=== PATIENT | female | born 1990 ===

== ENCOUNTER 2016-10-10 20:44 | Emergency (ER) | payer OTHER ==
[2016-10-10 20:45] VITALS: BMI 35.2
[2016-10-10 22:59] LABS: RBC URINE 5 /hpf (0-3); URINE BACTERIA RARE (<OCC); URINE BILIRUBIN NEGATIVE (NEGATIVE); URINE BLOOD 1+ (NEGATIVE); URINE COLOR Yellow (YELLOW); URINE GLUCOSE (UA) NORMAL (Normal); URINE KETONE NEGATIVE (NEGATIVE); URINE LEUKOCYTE ESTERASE 3+ Leu/uL (Negative); URINE PROTEIN NEGATIVE (NEGATIVE); URINE UROBILINOGEN NORMAL mg/dL (0.2-1.0); WBC URINE 75 /hpf (0-5)
--- NOTE | 2016-10-10 23:03 | C.PDOC ---
History Of Present Illness Patient presents to the ER with a complaint of abdominal pain and mild dysuria. Patient is tolerating PO well. Denies nausea or vomiting. Time Seen by Provider: 10/10/16 23:02 Chief Complaint (Nursing): Abdominal Pain History Per: Patient History/Exam Limitations: no limitations Onset/Duration Of Symptoms: Days (3) Current Symptoms Are (Timing): Still Present Severity: Mild Pain Scale Rating Of: 3 Location Of Pain/Discomfort: Diffuse Radiation Of Pain To:: None Quality Of Discomfort: Unable To Describe Associated Symptoms: denies: Fever, Chills, Nausea, Vomiting Exacerbating Factors: None Alleviating Factors: None Recent travel outside of the [place]: No Abnormal Vaginal Bleeding: No Past Medical History Reviewed: Historical Data, Nursing Documentation, Vital Signs Vital Signs: Last Vital Signs Temp 98.3 F 10/10/16 20:52 Pulse 62 10/10/16 23:54 Resp 18 10/10/16 23:54 BP 92/60 L 10/10/16 23:54 Pulse Ox 97 10/10/16 23:54 - Medical History PMH: Hyperthyroidism, Hypothyroidism Surgical History: Cholecystectomy - [facility] Procedures INDUCT LABOR-RUPT MEMB (01/06/15) MANUAL ASSIST DELIV NEC (01/06/15) REPAIR OB LACERATION NEC (01/06/15) Family History: States: No Known Family Hx - Social History Hx Tobacco Use: No Hx Alcohol Use: No Hx Substance Use: No - Immunization History Hx Tetanus Toxoid Vaccination: Yes Hx Influenza Vaccination: Yes Hx Pneumococcal Vaccination: No Review Of Systems Constitutional: Negative for: Fever, Chills ENT: Negative for: Throat Pain Cardiovascular: Negative for: Chest Pain Respiratory: Negative for: Shortness of Breath Gastrointestinal: Positive for: Abdominal Pain. Negative for: Nausea, Vomiting Genitourinary: Positive for: Dysuria (Mild) Musculoskeletal: Negative for: Back Pain Skin: Negative for: Rash, Lesions Neurological: Negative for: Weakness Psych: Negative for: Anxiety Physical Exam - Physical Exam Appears: Non-toxic, No Acute Distress Skin: Warm, Dry Oral Mucosa: Moist Neck: Supple Chest: Symmetrical, No Tenderness Cardiovascular: Rhythm Regular, No Murmur Respiratory: No Rales, No Rhonchi, No Wheezing Gastrointestinal/Abdominal: Soft, Tenderness (Mid epigastric), No Guarding, No Rebound Back: No CVA Tenderness Extremity: Bilateral: Atraumatic Neurological/Psych: Oriented x3, Normal Speech, Normal Cognition Gait: Steady ED Course And Treatment - Laboratory Results Result Diagrams: 10/10/16 23:24 10/10/16 23:24 O2 Sat by Pulse Oximetry: 100 (Room air) Pulse Ox Interpretation: Normal Progress Note: Blood work ordered. Pepcid, toradol and IV fluids administered. Reevaluation Time: 00:37 Reassessment Condition: Improved Disposition Counseled Patient/Family Regarding: Studies Performed, Diagnosis, Need For Followup, Rx Given - Disposition Referrals: Yolie Garay MD [Family Provider] - Disposition: HOME/ ROUTINE Disposition Time: 23:03 Condition: FAIR Prescriptions: Nitrofurantoin Macrocrystals [Macrobid] 1 cap PO BID #14 cap Phenazopyridine HCl [Pyridium] 200 mg PO TID #6 tablet Instructions: Abdominal Pain (ED), Urinary Tract Infection in Women (DC) - Clinical Impression Clinical Impression: Abdominal pain, UTI (urinary tract infection) - Scribe Statement The provider has reviewed the documentation as recorded by the Scribpriyanka Monroe All medical record entries made by the Scribe were at my direction and personally dictated by me. I have reviewed the chart and agree that the record accurately reflects my personal performance of the history, physical exam, medical decision making, and the department course for this patient. I have also personally directed, reviewed, and agree with the discharge instructions and disposition.
[2016-10-10] MEDS ORDERED: Sodium Chloride 0.9% 1,000 ML IV ONE (23:04)
[2016-10-10] MEDS ORDERED: Sodium Chloride 0.9% 1,000 ML ONE (23:26)
[2016-10-10 23:27] LABS: BASO % 0.6 % (0.0-2.0); EOS # 0.2 K/uL (0.0-0.7); EOS % 2.7 % (0.0-4.0); HEMATOCRIT 37.5 % (34.0-47.0); LYMPH # 2.3 K/uL (1.0-4.3); LYMPH % 33.8 % (20.0-40.0); MEAN CELL VOLUME 86.4 fL (81.0-99.0); MEAN CORPUSCULAR HGB CONC 33.6 g/dL (33.0-37.0); MONO # 0.6 K/uL (0.0-0.8); MONO % 8.4 % (0.0-10.0); RED CELL DISTRIBUTION WIDTH 13.6 % (11.5-14.5); WHITE BLOOD COUNT 6.8 K/uL (4.8-10.8)
[2016-10-10 23:35] LABS: CHLORIDE 106 mmol/L (98-107)
[2016-10-10 23:36] LABS: POTASSIUM 3.7 mmol/L (3.6-5.2); SODIUM 139 mmol/L (132-148)
[2016-10-10 23:38] LABS: ALB/GLOB RATIO 1.3 (1.0-2.1); ALKALINE PHOSPHATASE 90 U/L (38-126); AST/SGOT 37 U/L (14-36); BILIRUBIN,TOTAL 0.7 mg/dL (0.2-1.3); BLOOD UREA NITROGEN 10 mg/dL (7-17); CARBON DIOXIDE 24 mmol/L (22-30); GFR AFRICAN-AMERICAN > 60; TOTAL PROTEIN 7.2 g/dL (6.3-8.3)
[2016-10-10 23:39] LABS: ALT/SGPT 65 U/L (9-52); CALCIUM 8.8 mg/dl (8.6-10.4); GLUCOSE,RANDOM 94 mg/dL (65-105)
[2016-10-10 23:55] VITALS: RESP 18
[2016-10-11 01:12] VITALS: BP 107/69; PULSE 66; TEMP 98.1; O2SAT 99
== END 2016-10-11 01:13 | disposition home or self-care (01) ==
LOC: C.ER 20:44
DX: N39.0 Urinary tract infection, site not specified (principal); R10.9 Unspecified abdominal pain
CPT/HCPCS: 80053; 81001; 83690; 84703; 85025; 96361; 96374; 96375; 99284; J1885; J7040

== ENCOUNTER 2017-05-17 15:36 | Emergency (ER) | payer OTHER ==
[2017-05-17 15:50] VITALS: BMI 38.0
[2017-05-17 15:53] VITALS: O2SAT 100
[2017-05-17] MEDS ORDERED: Sodium Chloride 0.9% 1,000 ML IV ONE (17:36)
[2017-05-17] MEDS ORDERED: Sodium Chloride 0.9% 1,000 ML ONE (17:45)
[2017-05-17 17:51] LABS: BASO % 0.4 % (0.0-2.0); EOS # 0.1 K/uL (0.0-0.7); EOS % 1.3 % (0.0-4.0); HEMOGLOBIN 13.2 g/dL (11.0-16.0); LYMPH # 1.9 K/uL (1.0-4.3); LYMPH % 23.9 % (20.0-40.0); MEAN CELL VOLUME 87.7 fL (81.0-99.0); MEAN CORPUSCULAR HEMOGLOBIN 31.1 pg (27.0-31.0); MEAN CORPUSCULAR HGB CONC 35.5 g/dL (33.0-37.0); MEAN PLATELET VOLUME 10.2 fL (7.2-11.7); MONO # 0.4 K/uL (0.0-0.8); MONO % 5.1 % (0.0-10.0); NEUT # 5.5 K/uL (1.8-7.0); NEUT % 69.3 % (50.0-75.0); RBC 4.23 Mil/uL (3.80-5.20); RED CELL DISTRIBUTION WIDTH 12.9 % (11.5-14.5); WHITE BLOOD COUNT 7.9 K/uL (4.8-10.8)
[2017-05-17 17:59] LABS: SQUAMOUS EPITHIAL 6 /hpf (0-5); URINE BACTERIA RARE (<OCC); URINE BILIRUBIN NEGATIVE (NEGATIVE); URINE BLOOD 1+ (NEGATIVE); URINE CLARITY Hazy (Clear); URINE COLOR Yellow (YELLOW); URINE GLUCOSE (UA) NORMAL (Normal); URINE LEUKOCYTE ESTERASE 2+ Leu/uL (Negative); URINE NITRATE NEGATIVE (NEGATIVE); URINE PROTEIN NEGATIVE (NEGATIVE); URINE UROBILINOGEN NORMAL mg/dL (0.2-1.0)
[2017-05-17 18:03] LABS: ALB/GLOB RATIO 1.3 (1.0-2.1); ALBUMIN 4.4 g/dL (3.5-5.0); ALT/SGPT 111 U/L (9-52); AST/SGOT 71 U/L (14-36); BLOOD UREA NITROGEN 9 mg/dL (7-17); CALCIUM 9.3 mg/dl (8.6-10.4); GFR AFRICAN-AMERICAN > 60; GFR NON-AFRICAN AMERICAN > 60; LIPASE 73 U/L (23-300); MAGNESIUM 1.8 mg/dL (1.6-2.3)
--- NOTE | 2017-05-17 18:04 | C.PDOC ---
History Of Present Illness 27 yr old female with PMHx of cholecystectomy, presents to the ER for evaluation for abdominal pain for the past 2 days with associated dysuria. Patient also reports of vomiting and diarrhea. States the pain is in epigastric area. Denies fever, dysuria, hematuria, vaginal discharge, vagianal bleeding. Time Seen by Provider: 05/17/17 17:23 Chief Complaint (Nursing): Abdominal Pain History Per: Patient History/Exam Limitations: no limitations Onset/Duration Of Symptoms: Days (2) Current Symptoms Are (Timing): Still Present Location Of Pain/Discomfort: Epigastric Past Medical History Reviewed: Historical Data, Nursing Documentation, Vital Signs Vital Signs: Last Vital Signs Temp 97.7 F 05/17/17 19:16 Pulse 63 05/17/17 19:16 Resp 18 05/17/17 19:16 BP 92/57 L 05/17/17 19:16 Pulse Ox 100 05/17/17 19:16 - Medical History PMH: Hyperthyroidism, Hypothyroidism, Sexually Transmitted Disease Surgical History: Cholecystectomy - [facility] Procedures INDUCT LABOR-RUPT MEMB (01/06/15) MANUAL ASSIST DELIV NEC (01/06/15) REPAIR OB LACERATION NEC (01/06/15) Family History: States: No Known Family Hx - Social History Hx Tobacco Use: No Hx Alcohol Use: No Hx Substance Use: No - Immunization History Hx Tetanus Toxoid Vaccination: Yes Hx Influenza Vaccination: Yes Hx Pneumococcal Vaccination: No Review Of Systems Except As Marked, All Systems Reviewed And Found Negative. Constitutional: Negative for: Fever Cardiovascular: Negative for: Chest Pain, Palpitations, Orthopnea, Edema, Light Headedness Respiratory: Negative for: Cough, Shortness of Breath, SOB with Excertion Gastrointestinal: Positive for: Nausea, Vomiting, Abdominal Pain (epigastric), Diarrhea Genitourinary: Positive for: Dysuria. Negative for: Hematuria, Vaginal Discharge, Vaginal Bleeding Physical Exam - Physical Exam Appears: Well, Non-toxic, No Acute Distress Skin: Warm, Dry, No Rash Eye(s): bilateral: Normal Inspection, PERRL, EOMI Oral Mucosa: Moist Neck: Supple Cardiovascular: Rhythm Regular, No Murmur Respiratory: Normal Breath Sounds, No Rales, No Rhonchi, No Stridor, No Wheezing Gastrointestinal/Abdominal: Soft, No Tenderness, No Guarding, No Rebound Back: Normal Inspection, No CVA Tenderness Extremity: Normal ROM, No Swelling Neurological/Psych: Oriented x3, Normal Speech, Normal Motor ED Course And Treatment - Laboratory Results Result Diagrams: 05/17/17 17:40 05/17/17 17:40 O2 Sat by Pulse Oximetry: 100 (RA) Pulse Ox Interpretation: Normal Medical Decision Making Medical Decision Making: PLAN: * CBC * CMP * Urinalysis * Toradol IVP * Zofran IVP 6:51PM negative 6:58PM After zofran and toradol, patient feels better. On reevaluation, abdomen continues to be soft NT/ND. She has no flank tenderness. She is now tolerating po. She was informed of uti and need to take medication. Given detailed return instructions- for worsening pain. Disposition - Disposition Disposition: HOME/ ROUTINE Disposition Time: 19:00 Condition: GOOD Additional Instructions: Follow-up with PMD within 2 days. Return to ED if condition worsens or if you develop any worsening abdominal pain. Take full course of antibiotics. Prescriptions: Nitrofurantoin Macrocrystals [Macrobid] 100 mg PO BID #10 cap Instructions: Urinary Tract Infection in Women (ED) Forms: [facility] ([place]ian), Work Excuse - Clinical Impression Clinical Impression: UTI (urinary tract infection), Gastroenteritis - Scribe Statement The provider has reviewed the documentation as recorded by the Fiorellaibpriyanka Yates Provider Attestation: All medical record entries made by the Addy were at my direction and personally dictated by me. I have reviewed the chart and agree that the record accurately reflects my personal performance of the history, physical exam, medical decision making, and the department course for this patient. I have also personally directed, reviewed, and agree with the discharge instructions and disposition.
[2017-05-17 19:18] VITALS: BP 92/57; PULSE 63; RESP 18; TEMP 97.7
== END 2017-05-17 19:18 | disposition home or self-care (01) ==
LOC: C.ER 15:36
DX: K52.9 Noninfective gastroenteritis and colitis, unspecified (principal); N39.0 Urinary tract infection, site not specified
CPT/HCPCS: 80053; 81001; 83690; 83735; 84100; 85025; 96361; 96374; 96375; 99285; J1885; J2405; J7040

== ENCOUNTER 2017-12-13 10:59 | Emergency (ER) | payer OTHER ==
[2017-12-13 10:59] VITALS: BMI 38.0
[2017-12-13 11:03] VITALS: O2SAT 100
[2017-12-13] MEDS ORDERED: Sodium Chloride 0.9% 1,000 ML IV ONE (11:31)
--- NOTE | 2017-12-13 11:45 | C.PDOC ---
History Of Present Illness 27 y/o female presents to the ED for evaluation after having her menstrual period on November 26 and then experiencing bleeding again on the 07 of December. She reports since the 10 of December, the bleeding has been heavier and she has to change her pad/ tampon every half hour. The patient admits to feeling lower abdominal pain, feeling dizzy and passing clots. She denies any nausea, vomiting or fever. Time Seen by Provider: 12/13/17 11:30 Chief Complaint (Nursing): Female Genitourinary History Per: Patient History/Exam Limitations: no limitations Onset/Duration Of Symptoms: Days Current Symptoms Are (Timing): Still Present Associated Symptoms: Other (lower abdominal pain and dizziness). denies: Fever , Nausea, Diarrhea Recent travel outside of the [place]: No Past Medical History Reviewed: Historical Data, Nursing Documentation, Vital Signs Vital Signs: Last Vital Signs Temp 97.9 F 12/13/17 11:34 Pulse 69 12/13/17 11:34 Resp 20 12/13/17 11:34 BP 103/62 12/13/17 11:34 Pulse Ox 100 12/13/17 14:19 - Medical History PMH: Hyperthyroidism, Hypothyroidism, Sexually Transmitted Disease Surgical History: Cholecystectomy - [facility] Procedures INDUCT LABOR-RUPT MEMB (01/06/15) MANUAL ASSIST DELIV NEC (01/06/15) REPAIR OB LACERATION NEC (01/06/15) Family History: States: Unknown Family Hx - Social History Hx Tobacco Use: No Hx Alcohol Use: No Hx Substance Use: No - Immunization History Hx Tetanus Toxoid Vaccination: Yes Hx Influenza Vaccination: Yes Hx Pneumococcal Vaccination: No Review Of Systems Constitutional: Negative for: Fever, Chills Gastrointestinal: Positive for: Abdominal Pain (lower abdominal pain). Negative for: Nausea, Diarrhea Genitourinary: Positive for: Vaginal Bleeding. Negative for: Dysuria Neurological: Positive for: Dizziness. Negative for: Weakness, Headache Physical Exam - Physical Exam Appears: Non-toxic, No Acute Distress Skin: Normal Color, No Rash Head: Atraumatic, Normacephalic Eye(s): bilateral: PERRL, EOMI, Other (Conjuctiva NOT pale) Ear(s): Bilateral: Normal Oral Mucosa: Moist Neck: Normal ROM, Supple Chest: Symmetrical, No Tenderness Cardiovascular: Rhythm Regular, No Murmur Respiratory: No Rales, No Rhonchi, No Wheezing, Other (clear to auscultation b/l ) Gastrointestinal/Abdominal: Soft, No Tenderness, No Guarding, No Rebound Back: No CVA Tenderness, No Vertebral Tenderness Pelvic: Other (mild suprapubic tenderness) Extremity: No Calf Tenderness, No Swelling Extremity: Bilateral: Normal Color And Temperature, Normal ROM Neurological/Psych: Oriented x3, Other (no gross focal deficit) ED Course And Treatment - Laboratory Results Result Diagrams: 12/13/17 11:44 O2 Sat by Pulse Oximetry: 100 (RA) Pulse Ox Interpretation: Normal Medical Decision Making Medical Decision Making: Impression: 27 y/o female with increased vaginal bleeding after normal menses Plan: -CBC -IV Fluids -Urine Test -UA 1346 pt feeling better, no longer dizzy, will d/c with process development engineer f/u. Disposition Counseled Patient/Family Regarding: Studies Performed, Diagnosis, Need For Followup - Disposition Disposition: HOME/ ROUTINE Disposition Time: 14:32 Condition: GOOD Additional Instructions: Por favor, carlos un seguimiento con [facility]gers gineclogo o en [facility]. Regrese a la magdiel de urgencias por cualquier hemorragia peor. desmayo, o cualquier otra preocupacin. Instructions: Heavy Periods (DC) Forms: Gen Discharge Inst [place], [facility] ([place]) - Clinical Impression Clinical Impression: DUB (dysfunctional uterine bleeding) - PA / [employer]PERATIONS / Resident Statement MD/DO has reviewed & agrees with the documentation as recorded. - Scribe Statement The provider has reviewed the documentation as recorded by the Scribe (Ana Staley) All medical record entries made by the Scribe were at my direction and personally dictated by me. I have reviewed the chart and agree that the record accurately reflects my personal performance of the history, physical exam, medical decision making, and the department course for this patient. I have also personally directed, reviewed, and agree with the discharge instructions and disposition.
[2017-12-13 11:48] LABS: BASO % 0.6 % (0.0-2.0); EOS # 0.1 K/uL (0.0-0.7); EOS % 2.4 % (0.0-4.0); HEMOGLOBIN 11.5 g/dL (11.0-16.0); LYMPH # 1.8 K/uL (1.0-4.3); LYMPH % 32.1 % (20.0-40.0); MEAN CELL VOLUME 87.6 fL (81.0-99.0); MEAN CORPUSCULAR HEMOGLOBIN 30.8 pg (27.0-31.0); MEAN CORPUSCULAR HGB CONC 35.1 g/dL (33.0-37.0); MONO # 0.5 K/uL (0.0-0.8); MONO % 8.6 % (0.0-10.0); NEUT # 3.2 K/uL (1.8-7.0); NEUT % 56.3 % (50.0-75.0); RBC 3.74 Mil/uL (3.80-5.20); RED CELL DISTRIBUTION WIDTH 13.2 % (11.5-14.5); WHITE BLOOD COUNT 5.7 K/uL (4.8-10.8)
[2017-12-13] MEDS ORDERED: Sodium Chloride 0.9% 1,000 ML ONE (11:52)
[2017-12-13 13:30] LABS: URINE BILIRUBIN NEGATIVE (NEGATIVE); URINE CLARITY Clear (Clear); URINE COLOR YELLOW (YELLOW); URINE GLUCOSE (UA) NEGATIVE (Normal)
[2017-12-13 13:31] LABS: URINE BLOOD LARGE (NEGATIVE); URINE LEUKOCYTE ESTERASE NEGATIVE Leu/uL (Negative); URINE PROTEIN NEGATIVE (NEGATIVE); URINE UROBILINOGEN 0.2 mg/dL (0.2-1.0)
[2017-12-13 14:42] VITALS: BP 100/64; PULSE 62; RESP 18; TEMP 98.2
== END 2017-12-13 14:56 | disposition home or self-care (01) ==
LOC: C.ER 10:59
DX: N93.8 Other specified abnormal uterine and vaginal bleeding (principal)
CPT/HCPCS: 81001; 85025; 96360; 99285; J7030

== ENCOUNTER 2018-08-25 06:32 | Emergency (ER) | payer OTHER ==
[2018-08-25 06:33] VITALS: BMI 38.0
[2018-08-25 06:42] VITALS: BP 105/73; PULSE 84; RESP 20; TEMP 98.3; O2SAT 98
--- NOTE | 2018-08-25 07:12 | C.PDOC ---
History Of Present Illness Patient c/o 2 days h/o fever, sore throat and headache. Last dose of Ibuprofen at midnight. Patient denies sick contacts or recent traveling. Time Seen by Provider: 08/25/18 07:04 Chief Complaint (Nursing): Headache History Per: Patient History/Exam Limitations: no limitations Onset/Duration Of Symptoms: Days (2) Current Symptoms Are (Timing): Still Present Severity: Moderate Pain Scale Rating Of: 5 Quality: Aching Associated Symptoms: Other (sore throat, fever) Additional History Per: Patient Past Medical History Reviewed: Historical Data, Nursing Documentation, Vital Signs Vital Signs: Last Vital Signs Temp 98.3 F 08/25/18 06:38 Pulse 84 08/25/18 06:38 Resp 20 08/25/18 06:38 BP 105/73 08/25/18 06:38 Pulse Ox 98 08/25/18 06:38 Primary Care Provider: Yolie Garay - Medical History PMH: Hyperthyroidism, Hypothyroidism, Sexually Transmitted Disease Surgical History: Cholecystectomy - [facility] Procedures INDUCT LABOR-RUPT MEMB (01/06/15) MANUAL ASSIST DELIV NEC (01/06/15) REPAIR OB LACERATION NEC (01/06/15) Family History: States: Unknown Family Hx - Social History Hx Tobacco Use: No Hx Alcohol Use: No Hx Substance Use: No - Immunization History Hx Tetanus Toxoid Vaccination: Yes Hx Influenza Vaccination: Yes Hx Pneumococcal Vaccination: No Review Of Systems Except As Marked, All Systems Reviewed And Found Negative. Constitutional: Positive for: Fever ENT: Positive for: Throat Pain Neurological: Positive for: Headache Physical Exam - Physical Exam Appears: Well, Non-toxic, No Acute Distress Skin: Normal Color, Warm, No Rash Head: Atraumatic, Normacephalic Eye(s): bilateral: Normal Inspection, PERRL, EOMI Ear(s): Bilateral: Normal Nose: Normal, No Discharge Oral Mucosa: Moist Tongue: Normal Appearing, No Lesions Lips: Normal Appearing, No Lesions Gingiva: Normal Appearing, No Ulceration Throat: Erythema, Exudate (b/l), No Drooling, No Mass, Other (uvula midline, patent airway) Neck: Normal ROM Lymphatic: Adenopathy (anterior cervical) Chest: No Deformity, No Tenderness Cardiovascular: Rhythm Regular, No Murmur Respiratory: Normal Breath Sounds, No Accessory Muscle Use, No Rales, No Rhonchi Gastrointestinal/Abdominal: Soft, No Tenderness Extremity: Normal ROM, No Pedal Edema Neurological/Psych: Oriented x3, Normal Speech, Normal Cognition, Normal Cranial Nerves ED Course And Treatment O2 Sat by Pulse Oximetry: 98 Progress Note: 28 yo with exudative tonisllitis, most likely strep infection. Patient was treated with Ibuprofen and Amoxicillin and is stable to be d/c home with PMD follow up. Disposition - Disposition Referrals: Yolie Garay MD [Medical Doctor] - Disposition: HOME/ ROUTINE Disposition Time: 07:16 Condition: STABLE Additional Instructions: Follow up with PMD within 1-2 days. Return to ED if feel worse. Prescriptions: Amoxicillin [Amoxil 500 mg Cap] 500 mg PO Q8 #30 cap Ibuprofen [Motrin Tab] 600 mg PO Q8 #30 tab Instructions: Strep Throat (DC) - Clinical Impression Clinical Impression: Acute tonsillitis
== END 2018-08-25 07:32 | disposition home or self-care (01) ==
LOC: C.ER 06:32
DX: J03.90 Acute tonsillitis, unspecified (principal)